=== PATIENT | male | born 1955 | race Caucasian/White ===

== ENCOUNTER 2018-09-18 12:46 | Emergency (ER) | payer OTHER ==
--- OUTSIDE RECORDS SUMMARY | 2018-09-18 12:48 | XMS REPORT | Clinical Summary ---
:1955 Author Organization [facility] Address [address] [place] [address] Care Team Providers Name Role Phone Asked, No Pcp Primary Care Provider Unavailable Allergies No Known Allergies Medications Medication Sig Dispensed Refills Start Date End Date Status amoxicillin-pot TK 1 T PO Q 0 11/23/2016 Active clavulanate (AUGMENTIN) 12 H 875-125 mg per tablet levothyroxine (SYNTHROID, 0 02/01/2017 Active LEVOXYL) 25 mcg tablet olopatadine 0.6 % 0 01/31/2017 Active spray,non-aerosol pravastatin (PRAVACHOL) 20 TK 1 T PO QD. 3 12/08/2016 Active MG tablet fenoprofen 400 mg Take 400 mg 90 capsule 2 02/02/2017 Active capsuleIndications: Low by mouth 3 back pain, unspecified (three) times back pain laterality, a day. unspecified chronicity, with sciatica presence unspecified, Spondylolisthesis of lumbar region, Pain of left hip joint, Sacroiliitis (HCC) Active Problems Not on file Social History Tobacco Use Types Packs/Day Years Used Date Never Assessed Sex Assigned at Date Recorded Not on file Job Start Date Occupation Industry Not on file Not on file Not on file Travel History Travel Start Travel End No recent travel history available. Last Filed Vital Signs Not on file Plan of Treatment Health Maintenance Due Date Last Done Comments COLON CANCER SCREENING 10/09/2007 SHINGLES VACCINES (#1) 10/09/2007 INFLUENZA VACCINE 02/09/2018 Results Not on fileafter 09/17/2017 Insurance Payer Benefit Plan / Group Subscriber ID Type Phone Address AETNA AETNA HMO,POS,EPO, MC/EC xxxxxxxxxx HMO Advance Directives Patient has advance care planning documents on file. For more information, please contact:Jhonny Fink[address] [place] [address]
--- OUTSIDE RECORDS SUMMARY | 2018-09-18 12:49 | XMS REPORT ---
:1955 Author Organization [employer] Care Team Providers Name Role Phone Radha Pastor Provider Role Unavailable Allergies, Adverse Reactions, Alerts Substance Reaction Event Type Sulfa Info Not Available Drug Allergy Problems Problem Type Condition Code Onset Dates Condition Status Problem Seasonal allergic rhinitis, J30.2 Active unspecified trigger Problem Asymptomatic microscopic hematuria R31.21 Active Problem Allergic rhinitis, unspecified J30.9 Active seasonality, unspecified trigger Problem Pain in right knee M25.561 Active Problem Other chronic pain G89.29 Active Problem Obesity (BMI 30.0-34.9) E66.9 Active Problem Hyperlipidemia, unspecified E78.5 Active hyperlipidemia type Problem Hypothyroidism, unspecified type E03.9 Active Problem Pain in left knee M25.562 Active Problem Personal history of colonic polyps Z86.010 Active Assessment Pain in left knee M25.562 Active Assessment Pain in right knee M25.561 Active Assessment History of total bilateral knee Z96.653 Active replacement Assessment Other chronic pain G89.29 Active Assessment Hypothyroidism, unspecified type E03.9 Active Assessment Hyperlipidemia, unspecified E78.5 Active hyperlipidemia type Assessment Allergic rhinitis, unspecified J30.9 Active seasonality, unspecified trigger Problem Environmental allergies Z91.09 Active Assessment Obesity (BMI 30.0-34.9) E66.9 Active Problem History of total bilateral knee Z96.653 Active replacement Medications Medication Code Code Instructions Start End Status Dosage System Date Date Niacin [facility] [address]-99 Orally Once Active 1000 mg 1 daily capsule in evening (OTC) Meloxicam [facility] 34787016426 15 MG Orally October Active 1 tablet Once a day 2017, as needed 2017 for pain Aspirin [facility] 67674247980 81 MG Orally Active 1 tablet Once daily Azithromycin [facility] 44843146104 250 MG Orally Active 2 tablets Once a day on the first day, then 1 tablet daily for 4 days Multivitamin [facility] [address] Active not Adults 50+ defined Flonase [facility] 23479359356 Active not defined Benzonatate [facility] 73928762889 200 MG Orally Active 1 capsule Three times a day Levothyroxine [facility] 18760998040 25 MCG Orally Active 1 tablet Sodium Once daily on an empty stomach in the morning Meloxicam [facility] 46014934930 15 MG Orally Active 1 tablet Once daily as needed for pain Pravastatin [facility] 32869825503 20 mg Orally Active 1 tablet Sodium Once a day in evening Xyzal [facility] [address]-46 Active not defined Results No Known Results Summary Purpose eClinicalWorks Submission
--- OUTSIDE RECORDS SUMMARY | 2018-09-18 12:49 | XMS REPORT ---
[...] Problem Pain in right knee M25.561 Active Assessment Pain in left knee M25.562 Active Problem Other chronic pain G89.29 Active Assessment Low back pain M54.5 Active Assessment Other chronic pain G89.29 Active Problem Low back pain M54.5 Active Problem Hyperlipidemia, unspecified E78.5 Active hyperlipidemia type Problem Hypothyroidism, unspecified type E03.9 Active Problem Pain in left knee M25.562 Active Problem Personal history of colonic polyps Z86.010 Active Assessment Obesity (BMI 30.0-34.9) E66.9 Active Assessment Hypothyroidism, unspecified type E03.9 Active Assessment Pain in right knee M25.561 Active Assessment Allergic rhinitis, unspecified J30.9 Active seasonality, unspecified trigger Problem Environmental allergies Z91.09 Active Assessment Influenza vaccination administered Z23 Active at current visit Problem Obesity (BMI 30.0-34.9) E66.9 Active Assessment Hyperlipidemia, unspecified E78.5 Active hyperlipidemia type Problem History of total bilateral knee Z96.653 Active replacement Medications Medication Code Code Instructions Start End Status Dosage System Date Date Niacin [facility] [address]-68 Orally Once Active 1000 mg 1 daily capsule in evening (OTC) Multivitamin [facility] [address] Active not Adults 50+ defined Flonase [facility] 31934280211 Active not defined Pravastatin ND 65982786782 20 mg Orally Active 1 tablet Sodium Once a day in evening Xyzal ND 0 Orally Once Active 1 capsule daily in evening Meloxicam ND 62536073962 15 MG Orally December Active 1 tablet Once daily 30, as needed 2018 for pain Azithromycin ND 57577429749 250 MG Orally Active 2 tablets Once a day on the first day, then 1 tablet daily for 4 days [address] [facility] 78059581926 81 MG Orally Active 1 tablet Once daily Benzonatate [facility] 54879067845 200 MG Orally Active 1 capsule Three times a day Levothyroxine [facility] 73877867630 25 MCG Orally Active 1 tablet Sodium Once daily on an empty stomach in the morning Results No Known Results Immunizations Vaccine Administration Date Flucelvax Apr 13, 2018 Summary Purpose eClinicalWorks Submission
--- OUTSIDE RECORDS SUMMARY | 2018-09-18 12:49 | XMS REPORT ---
:1955 Author Organization [employer] Care Team Providers Name Role Phone Radha Pastor Provider Role Unavailable Allergies No Known Allergies Problems Problem Type Condition Code Onset Dates Condition Status Problem Asymptomatic microscopic hematuria R31.21 Active Problem Hyperlipidemia, unspecified E78.5 Active hyperlipidemia type Problem Hypothyroidism, unspecified type E03.9 Active Problem Environmental allergies Z91.09 Active Problem History of total bilateral knee Z96.653 Active replacement Problem Seasonal allergic rhinitis, J30.2 Active unspecified trigger Problem Allergic rhinitis, unspecified J30.9 Active seasonality, unspecified trigger Problem Dietary surveillance and counseling Z71.3 Active Problem Low back pain M54.5 Active Problem Obesity (BMI 30-39.9) E66.9 Active Problem Pain in left knee M25.562 Active Problem Personal history of colonic polyps Z86.010 Active Problem Pain in right knee M25.561 Active Problem Other chronic pain G89.29 Active Medications No Known Medications Results No Known Results Summary Purpose [employer] Submission
--- OUTSIDE RECORDS SUMMARY | 2018-09-18 12:49 | XMS REPORT ---
[...] Problem Hypothyroidism, unspecified type E03.9 Active Problem Dietary surveillance and counseling Z71.3 Active Problem Low back pain M54.5 Active Problem Obesity (BMI 30-39.9) E66.9 Active Problem Pain in left knee M25.562 Active Problem Personal history of colonic polyps Z86.010 Active Problem Pain in right knee M25.561 Active Problem Other chronic pain G89.29 Active Assessment URI, acute J06.9 Active Assessment Dietary surveillance and counseling Z71.3 Active Assessment Follow-up exam Z09 Active Problem Environmental allergies Z91.09 Active Problem History of total bilateral knee Z96.653 Active replacement Assessment Obesity (BMI 30-39.9) E66.9 Active Problem Seasonal allergic rhinitis, J30.2 Active unspecified trigger Problem Allergic rhinitis, unspecified J30.9 Active seasonality, unspecified trigger Medications Medication Code Code Instructions Start End Status Dosage System Date Date Pravastatin [facility] 85888303695 20 mg Orally Active 1 tablet Sodium Once a day in evening Aspirin [facility] 16624940475 81 MG Orally Active 1 tablet Once daily Benzonatate [facility] 07858513430 200 MG Orally Active 1 capsule Three times a day Azithromycin [facility] 44146719849 250 MG Orally Active 2 tablets Once a day on the first day, then 1 tablet daily for 4 days Niacin [facility] [address]-97 Orally Once Active 1000 mg 1 daily capsule in evening (OTC) Xyzal ND 0 Orally Once Active 1 capsule daily in evening Levothyroxine [facility] 23498675669 25 MCG Orally Active 1 tablet Sodium Once daily on an empty stomach in the morning Meloxicam [facility] 70549275815 15 MG Orally Vandana Active 1 tablet Once daily 30, as needed 2018 for pain Flonase [facility] 38916841579 Active not defined BELVIQ [facility] 36276522844 10 MG Orally Aug 17November 15, Active 1 tablet Twice a day 2018 2018 Multivitamin [facility] [address] Active not Adults 50+ defined Results No Known Results Summary Purpose [employer]ClinicalWorks Submission
[2018-09-18] MEDS ORDERED: ALBUTEROL 2.5 MG/3 ML NEB SOL ONE (13:23)
[2018-09-18] MEDS ORDERED: IPRATROPIUM BROM 0.5MG/2.5ML ONE (13:24)
[2018-09-18] MEDS ORDERED: ACETAMINOPHEN 500 MG TAB ONE (13:40)
--- NOTE | 2018-09-18 14:04 | RAD REPORT ---
EXAM DESCRIPTION: RAD - Chest Pa And Lat (2 Views) - 09/18/2018 1:51 pm CLINICAL HISTORY: Cough;Congestion Chest pain. COMPARISON: Chest Pa And Lat (2 Views) dated 01/29/2016 FINDINGS: The lungs are clear. The heart is normal in size. No displaced fractures. IMPRESSION: No acute or concerning finding suspected.
--- NOTE | 2018-09-18 14:35 | ER ---
Nurse's Notes [facility] Name: Darek Gutierrez Age: 62 yrs Sex: Male : 1955 Arrival Date: 09/18/2018 Time: 12:48 Bed 25 Private MD: Radha Pastor Diagnosis: Influenza due to identified novel influenza A virus Presentation: 09/18 13:11 Presenting complaint: Patient states: Cough, nasal congestion, sore throat, fever,and ph dizziness since Sat, denies N/V/D. Transition of care: patient was not received from another setting of care. Onset of symptoms was September 18, 2018. Risk Assessment: Do you want to hurt yourself or someone else? Patient reports no desire to harm self or others. Initial Sepsis Screen: Does the patient meet any 2 criteria? No. Patient's initial sepsis screen is negative. Does the patient have a suspected source of infection? No. Patient's initial sepsis screen is negative. Care prior to arrival: None. 13:11 Method Of Arrival: Ambulatory ph 13:11 Acuity: MIGDALIA 4 ph Historical: - Allergies: 13:13 Sulfa (Sulfonamide Antibiotics); ph - PMHx: 13:13 Hypothyroidism; Hyperlipidemia; ph - PSHx: 13:13 Knee surgery; marzena knee replacement; rotator cuff; ph - Immunization history:: Flu vaccine is up to date. - Social history:: Smoking status: Patient/guardian denies using tobacco. - Ebola Screening: : No symptoms or risks identified at this time. Screenin:06 Abuse screen: Denies threats or abuse. Denies injuries from another. Nutritional mg2 screening: No deficits noted. Tuberculosis screening: No symptoms or risk factors identified. Fall Risk None identified. Assessment: 14:04 General: Appears in no apparent distress. comfortable, Behavior is calm, cooperative. mg2 Pain: Complains of pain in throat Pain does not radiate. Pain currently is 3 out of 10 on a pain scale. Quality of pain is described as aching, Pain began gradually, Is intermittent. Neuro: Level of Consciousness is awake, alert, obeys commands, Oriented to person, place, time, situation. Cardiovascular: Capillary refill < 3 seconds Patient's skin is warm and dry. Respiratory: Airway is patent Respiratory effort is even, unlabored, Respiratory pattern is regular, symmetrical, Breath sounds are clear bilaterally. in right upper lobe, left upper lobe, right middle lobe, left lower lobe and right lower lobe. Respiratory: Reports cough that is productive, congestion. GI: No deficits noted. : No signs and/or symptoms were reported regarding the genitourinary system. EENT: Reports pain in throat. Derm: Skin is intact, is healthy with good turgor, Skin is pink, warm \T\ dry. normal. Musculoskeletal: Circulation, motion, and sensation intact. Capillary refill < 3 seconds. Vital Signs: 13:13 BP 130 / 76; Pulse 81; Resp 20; Temp 98.8; Pulse Ox 98% on R/A; Weight 104.33 kg; ph Height 5 ft. 8 in. (172.72 cm); 13:24 Temp 100.4(O); lt1 14:06 BP 134 / 58; Pulse 92; Resp 18; Temp 100.4(O); Pulse Ox 100% on R/A; Pain 2/10; mg2 14:47 Temp 100.1(O); mg2 13:13 Body Mass Index 34.97 (104.33 kg, 172.72 cm) ph ED Course: 12:48 Patient arrived in ED. mr 12:48 Radha Pastor MD is Private Physician. mr 13:03 Dee Dee Conde FNP-C is [facility]. kb 13:03 Felice Valerio MD is Attending Physician. kb 13:05 Mark Nina, ANDRES is Primary Nurse. mg2 13:12 Triage completed. ph 13:14 Arm band placed on. ph 13:20 Flu and/or RSV swab sent to lab. Strep swab sent to lab. lt1 13:32 X-ray completed. Patient tolerated procedure well. la2 13:51 Chest Pa And Lat (2 Views) XRAY In Process Unspecified. EDMS 14:47 No provider procedures requiring assistance completed. Patient did not have IV access mg2 during this emergency room visit. 14:48 Patient has correct armband on for positive identification. mg2 Administered Medications: 13:15 Drug: Albuterol 2.5 mg Route: Inhalation; mg2 14:48 Follow up: Response: No adverse reaction; Marked relief of symptoms mg2 13:15 Drug: AtroVENT Aerosol 0.5 mg Route: Inhalation; mg2 14:48 Follow up: Response: No adverse reaction; Marked relief of symptoms mg2 14:07 Drug: Tylenol 1000 mg Route: PO; mg2 14:48 Follow up: Response: No adverse reaction; Marked relief of symptoms mg2 Outcome: 14:34 Discharge ordered by MD. cisneros 14:47 Discharged to home ambulatory, with family. mg2 14:47 Condition: stable 14:47 Discharge instructions given to patient, family, Instructed on discharge instructions, follow up and referral plans. medication usage, Demonstrated understanding of instructions, follow-up care, medications, Prescriptions given X 2. 14:48 Patient left the ED. mg2 Signatures: Dispatcher [employer] EDMS Dee Dee Conde, [employer]C [employer]-Ckb Jessica Boyd mr ElizabethGali RN RN Cece Colón Michele, RN RN [facility] [place] [place] Nicole Penaloza lt1
--- NOTE | 2018-09-18 14:35 | EDPHYS ---
Physician Documentation [facility] Name: Darek Gutierrez Age: 62 yrs Sex: Male : 1955 Arrival Date: 09/18/2018 Time: 12:48 Bed 25 Private MD: Radha Pastor ED Physician Felice Valerio HPI: 09/18 14:32 This 62 yrs old Male presents to ER via Ambulatory with complaints of Flu kb Symptoms. 14:33 The patient or guardian reports cough, that is intermittent, described as moderate, kb with no sputum, flu symptoms, arthralgias, low-grade fever, myalgias, no appetite. Onset: The symptoms/episode began/occurred 2 day(s) ago. Severity of symptoms: At their worst the symptoms were moderate, in the emergency department the symptoms are unchanged. Modifying factors: The symptoms are alleviated by nothing, the symptoms are aggravated by nothing. Associated signs and symptoms: Pertinent positives: fever, rhinorrhea, Pertinent negatives: chest pain, diarrhea, ear ache, nausea, sore throat, vomiting. The patient has not experienced similar symptoms in the past. The patient has not recently seen a physician. Historical: - Allergies: 13:13 Sulfa (Sulfonamide Antibiotics); ph - PMHx: 13:13 Hypothyroidism; Hyperlipidemia; ph - PSHx: 13:13 Knee surgery; marzena knee replacement; rotator cuff; ph - Immunization history:: Flu vaccine is up to date. - Social history:: Smoking status: Patient/guardian denies using tobacco. - Ebola Screening: : No symptoms or risks identified at this time. ROS: 14:31 Cardiovascular: Negative for chest pain, palpitations, and edema, Abdomen/GI: Negative kb for abdominal pain, nausea, vomiting, diarrhea, and constipation, Back: Negative for injury and pain, : Negative for injury, bleeding, discharge, and swelling, MS/Extremity: Negative for injury and deformity, Skin: Negative for injury, rash, and discoloration, Neuro: Negative for headache, weakness, numbness, tingling, and seizure. 14:31 Respiratory: Positive for cough, Negative for dyspnea on exertion, hemoptysis, orthopnea, pleurisy, shortness of breath, sputum production, wheezing. 14:31 Constitutional: Positive for body aches, chills, fatigue, fever, malaise, Negative for kb poor PO intake, weight loss. Exam: 14:33 Constitutional: This is a well developed, well nourished patient who is awake, alert, kb and in no acute distress. Head/Face: Normocephalic, atraumatic. ENT: Nares patent. No nasal discharge, no septal abnormalities noted. Tympanic membranes are normal and external auditory canals are clear. Oropharynx with no redness, swelling, or masses, exudates, or evidence of obstruction, uvula midline. Mucous membranes moist. Neck: Trachea midline, no thyromegaly or masses palpated, and no cervical lymphadenopathy. Supple, full range of motion without nuchal rigidity, or vertebral point tenderness. No Meningismus. Chest/axilla: Normal chest wall appearance and motion. Nontender with no deformity. No lesions are appreciated. Cardiovascular: Regular rate and rhythm with a normal S1 and S2. No gallops, murmurs, or rubs. Normal PMI, no JVD. No pulse deficits. Abdomen/GI: Soft, non-tender, with normal bowel sounds. No distension or tympany. No guarding or rebound. No evidence of tenderness throughout. Back: No spinal tenderness. No costovertebral tenderness. Full range of motion. Skin: Warm, dry with normal turgor. Normal color with no rashes, no lesions, and no evidence of cellulitis. MS/ Extremity: Pulses equal, no cyanosis. Neurovascular intact. Full, normal range of motion. Neuro: Awake and alert, GCS 15, oriented to person, place, time, and situation. Cranial nerves II-XII grossly intact. Motor strength 5/5 in all extremities. Sensory grossly intact. Cerebellar exam normal. Normal gait. 14:33 Respiratory: the patient does not display signs of respiratory distress, Respirations: normal, symetrical, Breath sounds: wheezing: expiratory that is mild, is heard in the left lower lobe, right lower lobe, left posterior lower lobe and right posterior lower lobe. Vital Signs: 13:13 BP 130 / 76; Pulse 81; Resp 20; Temp 98.8; Pulse Ox 98% on R/A; Weight 104.33 kg; ph Height 5 ft. 8 in. (172.72 cm); 13:24 Temp 100.4(O); lt1 14:06 BP 134 / 58; Pulse 92; Resp 18; Temp 100.4(O); Pulse Ox 100% on R/A; Pain 2/10; mg2 14:47 Temp 100.1(O); mg2 13:13 Body Mass Index 34.97 (104.33 kg, 172.72 cm) ph MDM: 13:03 Patient medically screened. kb 14:30 Data reviewed: vital signs, nurses notes. Data interpreted: Pulse oximetry: on room air kb is 100 %. Interpretation: normal. Counseling: I had a detailed discussion with the patient and/or guardian regarding: the historical points, exam findings, and any diagnostic results supporting the discharge/admit diagnosis, lab results, the need for outpatient follow up, a family practitioner, to return to the emergency department if symptoms worsen or persist or if there are any questions or concerns that arise at home. 09/18 13:10 Order name: Flu; Complete Time: 14:11 kb 09/18 13:10 Order name: Strep; Complete Time: 14:24 kb 09/18 13:10 Order name: Chest Pa And Lat (2 Views) XRAY; Complete Time: 14:05 kb 09/18 14:22 Order name: Throat Culture EDMS Administered Medications: 13:15 Drug: Albuterol 2.5 mg Route: Inhalation; mg2 14:48 Follow up: Response: No adverse reaction; Marked relief of symptoms mg2 13:15 Drug: AtroVENT Aerosol 0.5 mg Route: Inhalation; mg2 14:48 Follow up: Response: No adverse reaction; Marked relief of symptoms mg2 14:07 Drug: Tylenol 1000 mg Route: PO; mg2 14:48 Follow up: Response: No adverse reaction; Marked relief of symptoms mg2 Disposition: 09/19 09:43 Co-signature as Attending Physician, Felice Valerio MD I agree with the assessment and risa plan of care. Disposition: 09/18/18 14:34 Discharged to Home. Impression: Influenza due to identified novel influenza A virus. - Condition is Stable. - Discharge Instructions: Influenza, Adult, [id number]. - Prescriptions for Tamiflu 75 mg Oral Capsule - take 1 capsule by ORAL route every 12 hours for 5 days; 10 capsule. Tessalon Perles 100 mg Oral Capsule - take 1 capsule by ORAL route every 8 hours As needed; 15 capsule. - Medication Reconciliation Form, Thank You Letter, Antibiotic Education, Prescription Opioid Use form. - Follow up: Emergency Department; When: As needed; Reason: Worsening of condition. Follow up: Private Physician; When: 2 - 3 days; Reason: Recheck today's complaints, Continuance of care, Re-evaluation by your physician. Signatures: Dispatcher [employer] EDDee Dee Edmonds, ANTELMO LIND-Felice Reynolds MD MD cha Hall, Patricia, RN RN ph Mark Nina RN RN mg2 Corrections: (The following items were deleted from the chart) 09/18 14:31 14:31 Constitutional: Negative for fever, chills, and weight loss, Cardiovascular: kb Negative for chest pain, palpitations, and edema, Abdomen/GI: Negative for abdominal pain, nausea, vomiting, diarrhea, and constipation, Back: Negative for injury and pain, : Negative for injury, bleeding, discharge, and swelling, MS/Extremity: Negative for injury and deformity, Skin: Negative for injury, rash, and discoloration, Neuro: Negative for headache, weakness, numbness, tingling, and seizure, kb 14:48 14:34 09/18/2018 14:34 Discharged to Home. Impression: Influenza due to identified mg2 novel influenza A virus. Condition is Stable. Forms are Medication Reconciliation Form, Thank You Letter, Antibiotic Education, Prescription Opioid Use. Follow up: Emergency Department; When: As needed; Reason: Worsening of condition. Follow up: Private Physician; When: 2 - 3 days; Reason: Recheck today's complaints, Continuance of care, Re-evaluation by your physician. kb
[2018-09-18 14:56] VITALS: BP 134/58; O2SAT 100
[2018-09-18 14:57] VITALS: TEMP 100.1
== END 2018-09-18 14:48 | disposition home or self-care (01) ==
LOC: ER 12:46
DX: J10.1 Influenza due to other identified influenza virus with other respiratory manifestations (principal); Z88.2 Allergy status to sulfonamides
CPT/HCPCS: 71046; 87070; 87081; 87804; 99284